=== PATIENT | male | born 1975 | race American Indian/Alaskan Native ===

== ENCOUNTER 2018-08-04 18:54 | Emergency (ER) | payer OTHER ==
[2018-08-04 19:07] VITALS: BP 116/86; PULSE 90; RESP 18; TEMP 98.2
--- NOTE | 2018-08-04 19:16 | C.PDOC ---
History Of Present Illness 42 yo male w/PMHx of COPD come in for evaluation of upper toothache developed since early today " after my tooth broke". Pt reports, pain is localized over B/L upper teeth, worse with chewing, cold air. Otherwise, pt denies fever, chills, headache, dizziness, drooling, trismus, cough, CP, SOB, dypsnea, recent dental procedure. Ambulatory, not in any apparent distress. Time Seen by Provider: 08/04/18 18:57 Chief Complaint (Nursing): Dental Pain History Per: Patient Past Medical History Reviewed: Historical Data, Nursing Documentation, Vital Signs Vital Signs: Last Vital Signs Temp 98.2 F 08/04/18 19:04 Pulse 90 08/04/18 19:04 Resp 18 08/04/18 19:04 BP 116/86 08/04/18 19:04 Pulse Ox 90 L 08/04/18 19:04 - Medical History PMH: COPD Family History: States: No Known Family Hx - Social History Hx Alcohol Use: No Hx Substance Use: Yes ("weed, dust") - Immunization History Hx Tetanus Toxoid Vaccination: No Hx Influenza Vaccination: No Hx Pneumococcal Vaccination: No Review Of Systems Except As Marked, All Systems Reviewed And Found Negative. Constitutional: Negative for: Fever, Chills Eyes: Negative for: Vision Change ENT: Positive for: Mouth Pain. Negative for: Ear Discharge, Nose Discharge, Mouth Swelling, Throat Pain, Throat Swelling Cardiovascular: Negative for: Chest Pain, Palpitations, Edema, Light Headedness Respiratory: Negative for: Shortness of Breath, Wheezing Neurological: Negative for: Altered Mental Status, Headache, Dizziness Physical Exam - Physical Exam Appears: Well, Non-toxic, No Acute Distress Skin: Normal Color, Warm, No Rash Head: Normacephalic Eye(s): bilateral: PERRL Ear(s): Bilateral: Normal Nose: No Flaring, No Discharge, No Deformity Oral Mucosa: Moist, No Drooling, No Trismus Tongue: Normal Appearing Lips: Normal Appearing Gingiva: Erythema (#15 and #3), Swelling (#15 and #3), Tender (#15 and #3), No Abscess Throat: No Erythema, No Drooling Neck: Trachea Midline, Supple Cardiovascular: Rhythm Regular, No Murmur, No JVD Respiratory: No Decreased Breath Sounds, No Accessory Muscle Use, No Stridor, No Wheezing Neurological/Psych: Oriented x3, Normal Speech ED Course And Treatment O2 Sat by Pulse Oximetry: 97 Pulse Ox Interpretation: Normal Progress Note: On re-eval, pt is afebrile, henodynamical stable. non-toxic. PulsEOx 97% RA. ENT: exam c/w #15 and #3 gingivitis, mild tooth tenderness to percussion. No evidence of tooth abscess. NO facial cellulitis, no drooling or trismus. neck: Supple, (-) meningeal sign, (-) carotid bruits B/L, (-) JVD. Lungs: CTA B/L, BS equal B/L. Pt advised. ref. to f/u with DEntist in 2-3 days for re-eval. return if any new changes Disposition Counseled Patient/Family Regarding: Diagnosis, Need For Followup, Rx Given - Disposition Referrals: [facility] [Provider Group] [facility] [Provider Group] Disposition: HOME/ ROUTINE Disposition Time: 19:15 Condition: STABLE Additional Instructions: Take medication as prescribed Follow up with Dentist in2 -3 days for re-evaluation. return if any new changes. Prescriptions: Clindamycin [Cleocin] 300 mg PO Q6 #28 cap traMADol [Ultram] 50 mg PO TID #7 tab Instructions: Dental Pain (DC) - Clinical Impression Clinical Impression: Dental abscess
[2018-08-04 19:36] VITALS: O2SAT 97
== END 2018-08-04 19:29 | disposition home or self-care (01) ==
LOC: C.ER 18:54
DX: K04.7 Periapical abscess without sinus (principal)

== ENCOUNTER 2018-09-09 14:00 | Emergency (ER) | payer OTHER | END 2018-09-09 14:47 | disposition home or self-care (01) | LOC: C.ER 14:00 ==